=== PATIENT | female | born 1980 | race Caucasian/White ===

== ENCOUNTER 2017-08-15 15:17 | Inpatient (IN) | payer OTHER ==
[2017-08-15] MEDS ORDERED: Iopamidol 370 76% 100 ML VIAL ONE (15:34)
[2017-08-15] MEDS ORDERED: Ondansetron HCl/PF 4 MG/2 ML Vial ONE ×2 (16:02→16:42)
[2017-08-15 16:14] LABS: BHCG - Serum Negative (NEGATIVE); Pregs Control Background? CLEAR/WHITE (CLR/WHITE); Pregs Control Bar Appear? YES (CONTROL BAR)
[2017-08-15 16:17] LABS: Band 2 % (5-11); Eosinophils 1 % (0-10); Hemoglobin 13.3 g/dL (12.0-16.0); Lymphocytes 3 % (21-51); MDiff Complete? YES; Mean Corpuscular HGB CONC 32.4 g/dL (32.0-36.0); Mean Corpuscular Hemoglobin 26.4 pg (27.0-31.0); Mean Corpuscular Volume 81.4 fl (81.0-99.0); Mean Platelet Volume 6.2 fL (7.4-10.4); Monocytes 2 % (0-10); Neutrophil 92 % (42-75); PLT Morphology Comment Appears Adequate; Platelet Count 360 thou/uL (130-400); RBC Distribution Width 12.6 % (11.5-14.5); RBC Morphology Normal; Red Blood Cell (RBC) Count 5.05 mill/uL (4.20-5.40); White Blood Cell (WBC) Count 16.6 thou/uL (4.8-10.8)
[2017-08-15 16:21] LABS: ALT (SGPT) 137 U/L (8-55); AST (SGOT) 101 U/L (5-34); Albumin 4.8 g/dL (3.5-5.0); Alkaline Phosphatase 59 U/L (40-150); Anion Gap 18 mmol/L (10-20); BUN (Urea Nitrogen) 9 mg/dL (7.0-18.7); Bilirubin, Total 0.7 mg/dL (0.2-1.2); Calc. Creatinine Clearance 0 mL/min (70-130); Calcium 9.5 mg/dL (7.8-10.44); Carbon Dioxide 23 mmol/L (22-29); Chloride 100 mmol/L (98-107); Estimated GFR-MDRD Greater than 90; Glucose 105 mg/dL (70-105); Lipase 23 U/L (8-78); Potassium 3.7 mmol/L (3.5-5.1); Protein, Total 8.8 g/dL (6.0-8.3); Sodium 137 mmol/L (136-145)
[2017-08-15 16:22] LABS: Bilirubin Small (Negative); Blood, Urine Trace (Negative); Glucose, Urine (Dipstick) Negative (Negative); Leukocyte Negative (Negative); Nitrite Negative (Negative); Protein, Urine (Dipstick) Negative (Neg-Trace); Urobilinogen 0.2 mg/dL (0.2-1.0); pH, Urine 5.5 (5.0-9.0)
[2017-08-15 16:23] LABS: Clarity Hazy (Clear); Specific Gravity, Urine 1.026 (1.002-1.036)
[2017-08-15 16:24] LABS: RBC/HPF 0-3 HPF (0-3); WBC/HPF None Seen HPF (0-3)
[2017-08-15 16:25] LABS: Bacteria/HPF Rare-Few HPF (None Seen)
[2017-08-15] MEDS ORDERED: Morphine 4 MG/ML Carpuject ONE (16:42)
--- NOTE | 2017-08-15 19:19 | CT ---
CT OF ABDOMEN AND PELVIS PERFORMED WITH INTRAVENOUS CONTRAST ENHANCEMENT: 08/15/17 HISTORY: Abdominal pain with nausea and vomiting. The lung bases shows some linear atelectasis in the left base. The liver, spleen and pancreas regions appear unremarkable. Some increased attenuation within the gal lbladder suspicious for some small stones. Right and left adrenal glands and right and left kidneys are normal in size. There is no significant periaortic or mesenteric lymphadenopathy. CT OF PELVIS PERFORMED WITHOUT CONTRAST ENHANCEMENT: The lack of oral contrast in small bowel makes it difficult to identify the appendix but there is a d ilated fluid filled structure with some minimal fat stranding around the structure. It appears to hav e some calcifications within it suggesting appendicoliths. It is somewhat difficult to connect to the cecum but appears that the proximal portion of the appendix is not dilated and the more distal porti on is dilated. There is no significant free fluid. There are follicles involving both adnexa. IMPRESSION: CT findings suspicious for appendicitis. POS: ALEJANDRA
[2017-08-15] MEDS ORDERED: Piperacillin/Tazobactam 4.5 GM VIAL ONE (20:12)
[2017-08-15] MEDS ORDERED: Sodium Chloride 0.9% 100 ML ONE (20:13)
[2017-08-15] MEDS ORDERED: Ondansetron ODT 4 MG TAB SL PRN (22:18)
[2017-08-15] MEDS ORDERED: Ondansetron HCl/PF 4 MG/2 ML Vial IVP PRN (22:18)
[2017-08-15] MEDS ORDERED: Morphine PF 1 MG/ML SYR IVP PRN (22:19)
[2017-08-15] MEDS: Lactated Ringer's 1,000 ML IV SCH (22:49)
[2017-08-15] MEDS ORDERED: Acetaminophen 1,000 MG in Premix Bag 1 BAG IVPB PRN (23:19)
[2017-08-15] MEDS: Ketorolac Tromethamine 30 MG/ML VIAL IVP PRN (23:52)
[2017-08-16 00:16] VITALS: BMI 24.7
[2017-08-16] MEDS: Ketorolac Tromethamine 30 MG/ML VIAL IVP PRN (06:03)
[2017-08-16] MEDS: Lactated Ringer's 1,000 ML IV SCH (06:14)
[2017-08-16 08:03] VITALS: BP 100/56; TEMP 98.7
[2017-08-16] MEDS ORDERED: FLU VACC QS2017-18 36 mo. & older 0.5 ML SYRINGE IM ONE (09:00)
--- NOTE | 2017-08-16 09:10 | HP ---
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 She present ed in the emergency room. CAT scan revealed changes consistent with appendicitis. She had elevated white count of 16, hemoglobin 13. Basic metabolic profile was unremarkable. ALLERGIES: None. TOBACCO: None. ALCOHOL: Occasionally. MEDICATIONS: None routinely. PAST SURGICAL HISTORY: As a 2-year-old , she had a congenital heart surgery at [facility] in [facility]. She recently saw Dr. Luis Miguel Mtz and echocardiogram and EKG was normal. She has had a bilater al tubal ligation. REVIEW OF SYSTEMS: Ten point noncontributory. PHYSICAL EXAMINATION: VITAL SIGNS: Weight 61 kilograms, respiratory rate 16, 98.9 degrees, 130/88, and 85 heart rate. HEAD, EYES, EARS, NOSE, AND THROAT: Unremarkable. LUNGS: Clear to auscultation. CARDIAC: Regular rate and rhythm without murmur or gallop. ABDOMEN: Soft, tenderness in right lower quadrant with guarding and rebound. EXTREMITIES: Unremarkable. ASSESSMENT AND PLAN: Acute appendicitis. Recommend laparoscopic video appendectomy. Risk of infect ion, bleeding, visceral opera injury, and open operation discussed. She consents.
[2017-08-16] MEDS ORDERED: Scopolamine 1.5 mg/72 hour Patch ONE (09:17)
[2017-08-16] MEDS ORDERED: Piperacillin/Tazobactam 3.375 GM in Sodium Chloride 0.9% 100 ML IVPB SCH (09:30)
[2017-08-16] MEDS ORDERED: Scopolamine 1.5 mg/72 hour Patch TOP SCH (09:30)
[2017-08-16] MEDS ORDERED: Ketorolac Tromethamine 30 MG/ML VIAL IVP SCH (09:30)
[2017-08-16] MEDS ORDERED: Acetaminophen 1,000 MG in Premix Bag 1 BAG IVPB SCH (09:30)
[2017-08-16] MEDS ORDERED: Bupivacaine/Epinephrine 0.25% 30 ML VIAL ONE (10:20)
[2017-08-16] MEDS ORDERED: Fentanyl 250 MCG/5 ML VIAL ONE (10:29)
[2017-08-16] MEDS ORDERED: Promethazine HCl 25 MG/ML VIAL SLOW IVP PRN (11:06)
[2017-08-16] MEDS ORDERED: Promethazine HCl 25 MG/ML VIAL IM PRN (11:06)
[2017-08-16] MEDS ORDERED: Meperidine HCl/PF 25 MG/ML VIAL SLOW IVP PRN (11:06)
[2017-08-16] MEDS ORDERED: Fentanyl 100 MCG/2 ML VIAL ONE (11:51)
[2017-08-16] MEDS ORDERED: traMADol HCl 50 MG TAB PO PRN ×2 (13:40)
[2017-08-16] MEDS ORDERED: Ibuprofen 600 MG TAB PO PRN (13:40)
[2017-08-16] MEDS ORDERED: Acetaminophen 500 MG TAB PO PRN (13:40)
[2017-08-16] MEDS ORDERED: Dexamethasone 20 MG/5 ML VIAL ONE (13:44)
[2017-08-16] MEDS ORDERED: PHENYLEPHRINE-NS 100 MCG/ML 10 ML SYRINGE ONE (13:44)
[2017-08-16] MEDS ORDERED: Ondansetron HCl/PF 4 MG/2 ML Vial ONE (13:44)
[2017-08-16] MEDS ORDERED: Lidocaine 1% PF 5 ML VIAL ONE (13:44)
[2017-08-16] MEDS ORDERED: PROPOFOL 200 MG/20 ML VIAL ONE (13:44)
[2017-08-16] MEDS ORDERED: Succinylcholine Chloride 20 MG/ML 10 ml SYRINGE FS ONE (13:44)
[2017-08-16] MEDS ORDERED: Glycopyrrolate 0.2 MG/ML 5 ML SYRINGE ONE (13:44)
--- NOTE | 2017-08-16 15:49 | OP ---
PREOPERATIVE DIAGNOSIS: Acute appendicitis. POSTOPERATIVE DIAGNOSIS: Acute appendicitis. PROCEDURE: Laparoscopic video appendectomy. SURGEON: Dr. Sukumar Mccullough. ANESTHESIA: General. Local 0.25% Marcaine with epinephrine, 30 mL, mixed with 2% Xylocaine, 10 mL DESCRIPTION OF PROCEDURE: The patient was taken to the operating room where under general anesthesia , Perdomo catheter placed through the beginning of the procedure and removed at the end. Abdomen prepa red with ChloraPrep, draped in routine fashion. Local anesthetic infiltrated into skin and subcutane ous tissue about each port site. Infraumbilical incision made and pneumoperitoneum to 15 mmHg obtain ed with the Veress needle, replacing it with a 5 port and laparoscope inserted. Right lateral subcos dickson incision made and a [address] Suprapubic incision made and a 12 port placed. Appendix was n oted to be acutely inflamed. Mesoappendix taken down with the LigaSure. The stump of the appendix d ivided with Endo-STEVEN blue load stapler. Stapled cecal stump was hemostatic as the appendix removed a nd submitted to Pathology. Good hemostasis ensured. Irrigant and pneumoperitoneum evacuated. All i nstruments removed and all skin incisions approximated with interrupted subdermal 4-0 Monocryl and De rmaGlue applied after suprapubic fascia approximated with 0 Vicryl.
--- NOTE | 2017-08-16 21:32 | DIS ---
DATE OF ADMISSION: 08/15/2017 DATE OF DISCHARGE: 08/16/2017 DISCHARGE DIAGNOSIS: Acute appendicitis. HISTORY: A 36-year-old female presenting with a classic history and exam for appendicitis, underwent a CAT scan confirming this, received intravenous fluids and antibiotics overnight and underwent lapa roscopic video appendectomy. Discharged home postoperatively the same day. Follow up in Dr. Mccullough's office in 1-2 weeks. Diet and activity as tolerated. Return to work in 3 days to 7 days. [id number] Tylenol and ibuprofen for pain, Ultram #20, 2 refills given in case needed.
== END 2017-08-16 14:45 | disposition home or self-care (01) | DRG 343 ==
LOC: SCSER 15:17 → OBSVTOIN 21:38 → INTOOBSV 21:38 → 3SW 21:38
PROVIDERS: ADMIT Specialist; ATTEND Specialist
PROC: 0DTJ4ZZ Resection of Appendix, Percutaneous Endoscopic Approach (ICD-10-PCS; principal; 2017-08-16)
DX: K35.80 Unspecified acute appendicitis (principal)
CPT/HCPCS: 74177; 80053; 81003; 81015; 83690; 84703; 85025; 88304; 96361; 96365; 96375; 96376; J0131; J1100; J1885; J2001; J2270; J2405; J2543; J2704; J3010; J7050